=== PATIENT | female | born 1980 | race Caucasian/White ===

== ENCOUNTER 2018-08-14 16:03 | Emergency (ER) | payer SELFPAY ==
[~2018-08-14] VITALS: Ht 152.4 cm; Wt 95.0 kg
[2018-08-14] MEDS ORDERED: KETOROLAC 15MG/ML VIAL IV ONE (17:15)
[2018-08-14 17:30] VITALS: BP 145/79
[2018-08-14] MEDS ORDERED: HYDROCODONE/ACETAMINOPHEN 5/325MG TABLET PO ONE (18:45)
[2018-08-14 19:23] LABS: HEMATOCRIT. 35.1 % (36.0-48.0); HEMOGLOBIN. 10.5 g/dL (12.0-16.0); MEAN CORPUSCULAR HEMOGLOBIN 21.9 pg (28.0-32.0); MEAN CORPUSCULAR VOLUME 72.8 fL (81.0-99.0); PLATELET 472 x1000/uL (130-400); RED BLOOD CELL COUNT 4.82 mill/uL (4.2-5.4); RED CELL DISTRIBUTION WIDTH 18.2 % (11.6-14.6)
[2018-08-14 19:29] LABS: CHLORIDE 105 mEq/L (98-107)
[2018-08-14 19:33] LABS: D-DIMER 0.46 mg/L FEU (<0.50)
[2018-08-14 20:40] LABS: PLATELET ESTIMATE INCREASED
== END 2018-08-14 19:18 | disposition left against medical advice (07) ==
LOC: ER 16:03
DX: R07.89 Other chest pain (principal); Z86.711 Personal history of pulmonary embolism
CPT/HCPCS: 36415; 85379; 93005; 99284